=== PATIENT | male | born 1955 | race Caucasian/White ===

== ENCOUNTER 2018-03-24 20:30 | Emergency (ER) | payer MEDICAID ==
[2018-03-24] MEDS ORDERED: Aspirin 81 MG Tab.Chew PO STA (21:04)
[2018-03-24] MEDS ORDERED: Simvastatin 40 MG Tab PO STA (21:04)
[2018-03-24] MEDS ORDERED: Metoprolol Tartrate 5 MG/5 ML SDV IVPUSH ONE (21:05)
--- NOTE | 2018-03-24 21:11 | EDM.PDOC ---
ED HPI GENERAL MEDICAL PROBLEM - General Chief Complaint: Chest Pain Stated Complaint: CHEST PAINS Time Seen by Provider: 03/24/18 20:41 Source of Information: Reports: Patient, Other (Friend) History Limitations: Reports: No Limitations - History of Present Illness INITIAL COMMENTS - FREE TEXT/NARRATIVE: The patient states that he developed an achy discomfort felt retrosternally and just to the right of his sternum, well as between the scapulae, this morning. The discomfort has been waxing and waning. It is made worse if he walks, improved if he rests. The patient also reports that a right upper molar has been aching on and off today, as well. He has associated dyspnea, nausea, diaphoresis, and sense of impending doom. No prior similar symptoms. The patient states that this is not the same as prior indigestion. The patient took 2 baby aspirin around 15:00 this afternoon. The patient is visiting from [place], [place]. Treatments PROGRAM DIRECTOR AIR TALENT: Reports: Other (see below) Other Treatments PROGRAM DIRECTOR AIR TALENT: 162 mg aspirin today Chest Pain Score (Numeric/FACES): 6 - Related Data Allergies Allergy/AdvReac Type Severity Reaction Status Date / Time No Known Allergies Allergy Verified 03/24/18 20:55 Home Meds: Home Meds Albuterol Sulfate [Proventil Hfa] 2 puff INH Q4H PRN 03/24/18 [History] Aspirin [Halfprin] 81 mg PO DAILY 03/24/18 [History] Atenolol 50 mg PO DAILY 03/24/18 [History] Levothyroxine 150 mcg PO DAILY 03/24/18 [History] Meloxicam 7.5 mg PO DAILY PRN 03/24/18 [History] Triamterene/Hydrochlorothiazid [Triamterene-HCTZ 75-50 MG] 1 tab PO DAILY [History] metFORMIN [Glucophage] 500 mg PO BID 03/24/18 [History] Past Medical History Cardiovascular History: Reports: High Cholesterol (untreated), Hypertension Respiratory History: Reports: Asthma (suspected, not confirmed) Psychiatric History: Reports: Anxiety (untreated), Depression (untreated) Endocrine/Metabolic History: Reports: Diabetes, Type II, Hypothyroidism - Past Surgical History HEENT Surgical History: Reports: Tonsillectomy Male Surgical History: Reports: Nephrectomy (right, 2000) Neurological Surgical History: Reports: Lumbar Spine (L4-L5, 1986) Musculoskeletal Surgical History: Reports: Other (See Below) (Right 5th toe amputation) Social & Family History - Tobacco Use Smoking Status *Q: Current Every Day Smoker Years of Tobacco use: 24 Packs/Tins Daily: 0.5 - Alcohol Use Alcohol Use History: Yes Date/Time of Last Drink Comment: Rare consumption since 2012, due to excess - Recreational Drug Use Recreational Drug Use: No - Living Situation & Occupation Living situation: Reports: , Alone Occupation: Unemployed ED ROS GENERAL - Review of Systems Review Of Systems: ROS reveals no pertinent complaints other than HPI. ED EXAM, GENERAL - Physical Exam Exam: See Below Exam Limited By: No Limitations General Appearance: Alert, WD/WN, No Apparent Distress Eye Exam: Bilateral Eye: EOMI, Normal Inspection Ears: Normal External Exam, Hearing Grossly Normal Nose: Normal Inspection, No Blood Throat/Mouth: Normal Inspection, Normal Lips, Normal Voice, No Airway Compromise Head: Atraumatic, Normocephalic Neck: Normal Inspection, Full Range of Motion Respiratory/Chest: No Respiratory Distress, Lungs Clear, Normal Breath Sounds, No Accessory Muscle Use Cardiovascular: Normal Peripheral Pulses, Regular Rate, Rhythm, No Edema, No Gallop, No JVD, No Murmur, No Rub Peripheral Pulses: 4+: Radial (L), Radial (R) GI/Abdominal: Normal Bowel Sounds, Soft, Non-Tender, No Organomegaly, No Distention, No Abnormal Bruit, No Mass, Other (Obese) (Male) Exam: Deferred Rectal (Males) Exam: Deferred Back Exam: Normal Inspection, Full Range of Motion, NT Extremities: Normal Inspection, Normal Range of Motion, No Pedal Edema, Normal Capillary Refill Neurological: Alert, Oriented, Normal Cognition, No Motor/Sensory Deficits Psychiatric: Normal Affect Skin Exam: Warm, Dry, Intact, Normal Color, No Rash EKG INTERPRETATION EKG Date: 03/24/18 Time: 20:38 Rhythm: NSR Rate (Beats/Min): 60 [place]: Normal P-Wave: Present QRS: Normal ST-T: Elevated (Concave, anterolateral leads. No T-wave inversion.) QT: Normal Comparison: NA - No Prior EKG Course - Vital Signs Last Recorded V/S: Last Vital Signs Temp 35.6 C 03/24/18 20:38 Pulse 68 03/24/18 21:19 Resp 20 03/24/18 20:38 BP 122/73 03/24/18 21:19 Pulse Ox 100 03/24/18 20:38 - Orders/Labs/Meds Orders: Active Orders 24 hr Category Date Time Status EKG Documentation Completion [RC] STAT Care 03/24/18 21:03 Active Glucose [Blood Glucose Check, Bedside] [RC] ONETIME Care 03/24/18 20:54 Active Chest 2V [CR] Stat Exams 03/24/18 21:03 Taken Chest Abdomen Pelvis w Cont [CT] Stat Exams 03/24/18 21:05 Taken Sodium Chloride 0.9% [Normal Saline] 1,000 ml Med 03/24/18 22:00 Active IV ASDIRECTED Medication Orders Sodium Chloride (Normal Saline) 1,000 mls @ 100 mls/hr IV ASDIRECTED MATTEO Last Admin: 03/24/18 21:57 Dose: 100 mls/hr Labs: Laboratory Tests 03/24/18 03/24/18 03/24/18 Range/Units 20:40 20:40 20:40 WBC 12.11 H (4.23-9.07) K/mm3 RBC 4.77 (4.63-6.08) M/mm3 Hgb 15.0 (13.7-17.5) gm/L Hct 41.2 (40.1-51.0) % MCV 86.4 (79.0-92.2) fl MCH 31.4 (25.7-32.2) pg MCHC 36.4 H (32.2-35.5) g/dl RDW Std Deviation 37.8 (35.1-43.9) fL Plt Count 263 (163-337) K/mm3 MPV 9.1 L (9.4-12.3) fl Neutrophils % (Manual) 73 H (40-60) % Band Neutrophils % 0 (0-10) % Lymphocytes % (Manual) 13 L (20-40) % Atypical Lymphs % 0 % Monocytes % (Manual) 10 (2-10) % Eosinophils % (Manual) 1 (0.8-7.0) % Basophils % (Manual) 3 H (0.2-1.2) Platelet Estimate Adequate Plt Morphology Comment Normal RBC Morph Comment Normal PT 10.8 (9.5-12.1) SECONDS INR 0.99 APTT 36 H (24-31) SECONDS D-Dimer, Quantitative 0.83 H (0.19-0.50) mg/L Sodium 120 L (136-145) mEq/L Potassium 4.3 (3.5-5.1) mEq/L Chloride 86 L (98-107) mEq/L Carbon Dioxide 24 (21-32) mEq/L Anion Gap 14.3 (5-15) BUN 9 (7-18) mg/dL Creatinine 0.9 (0.7-1.3) mg/dL Est Cr Clr Drug Dosing 88.31 mL/min Estimated GFR (MDRD) > 60 (>60) mL/min BUN/Creatinine Ratio 10.0 L (14-18) Glucose 212 H (80-115) mg/dL POC Glucose (80-115) mg/dL Calcium 8.6 (8.5-10.1) mg/dL Magnesium 1.6 L (1.8-2.4) mg/dl Total Bilirubin 0.7 (0.2-1.0) mg/dL AST 74 H (15-37) U/L ALT 24 (16-63) U/L Alkaline Phosphatase 63 (46-116) U/L Troponin I 4.935 H* (0.00-0.056) ng/mL NT-Pro-B Natriuret Pep (0-125) pg/mL Total Protein 7.3 (6.4-8.2) g/dl Albumin 3.9 (3.4-5.0) g/dl Globulin 3.4 gm/dL Albumin/Globulin Ratio 1.2 (1-2) 03/24/18 03/24/18 Range/Units 20:40 20:45 WBC (4.23-9.07) K/mm3 RBC (4.63-6.08) M/mm3 Hgb (13.7-17.5) gm/L Hct (40.1-51.0) % MCV (79.0-92.2) fl MCH (25.7-32.2) pg MCHC (32.2-35.5) g/dl RDW Std Deviation (35.1-43.9) fL Plt Count (163-337) K/mm3 MPV (9.4-12.3) fl Neutrophils % (Manual) (40-60) % Band Neutrophils % (0-10) % Lymphocytes % (Manual) (20-40) % Atypical Lymphs % % Monocytes % (Manual) (2-10) % Eosinophils % (Manual) (0.8-7.0) % Basophils % (Manual) (0.2-1.2) Platelet Estimate Plt Morphology Comment RBC Morph Comment PT (9.5-12.1) SECONDS INR APTT (24-31) SECONDS D-Dimer, Quantitative (0.19-0.50) mg/L Sodium (136-145) mEq/L Potassium (3.5-5.1) mEq/L Chloride (98-107) mEq/L Carbon Dioxide (21-32) mEq/L Anion Gap (5-15) BUN (7-18) mg/dL Creatinine (0.7-1.3) mg/dL Est Cr Clr Drug Dosing mL/min Estimated GFR (MDRD) (>60) mL/min BUN/Creatinine Ratio (14-18) Glucose (80-115) mg/dL POC Glucose 216 H (80-115) mg/dL Calcium (8.5-10.1) mg/dL Magnesium (1.8-2.4) mg/dl Total Bilirubin (0.2-1.0) mg/dL AST (15-37) U/L ALT (16-63) U/L Alkaline Phosphatase (46-116) U/L Troponin I (0.00-0.056) ng/mL NT-Pro-B Natriuret Pep 734 H (0-125) pg/mL Total Protein (6.4-8.2) g/dl Albumin (3.4-5.0) g/dl Globulin gm/dL Albumin/Globulin Ratio (1-2) Meds: Medications Generic Name Dose Route Start Last Admin Trade Name Freq PRN Reason Stop Dose Admin Sodium Chloride 1,000 mls @ 100 mls/hr 03/24/18 22:00 03/24/18 21:57 Normal Saline IV 100 mls/hr ASDIRECTED MATTEO Administration Discontinued Medications Generic Name Dose Route Start Last Admin Trade Name Freq PRN Reason Stop Dose Admin Aspirin 324 mg 03/24/18 21:04 03/24/18 21:16 Aspirin PO 03/24/18 21:05 324 mg ONETIME STA Administration Magnesium Sulfate 2 gm/ Premix 50 mls @ 50 mls/hr 03/24/18 21:53 03/24/18 21: 58 IV 03/24/18 22:52 50 mls/hr ONETIME STA Administration Sodium Chloride 100 mls @ 4 mls/sec 03/24/18 22:02 03/24/18 22:05 Normal Saline IV 03/24/18 22:03 4 mls/sec ONETIME ONE Administration Iopamidol 40 ml 03/24/18 22:02 03/24/18 22:04 Isovue-370 (76%) IVPUSH 03/24/18 22:03 40 ml ONETIME ONE Administration Iopamidol 100 ml 03/24/18 22:02 03/24/18 22:04 Isovue-370 (76%) IVPUSH 03/24/18 22:03 100 ml ONETIME ONE Administration Metoprolol Tartrate 5 mg 03/24/18 21:05 03/24/18 21:19 Lopressor IVPUSH 03/24/18 21:06 5 mg ONETIME ONE Administration Simvastatin 80 mg 03/24/18 21:04 03/24/18 21:17 Zocor PO 03/24/18 21:05 80 mg ONETIME STA Administration - Re-Assessments/Exams Free Text/Narrative Re-Assessment/Exam: 03/24/18 21:10 The patient's history is very concerning for angina, and while concave, he has ST elevations in his anterolateral leads. I have ordered a chest pain evaluation , to include a CT aortogram, to evaluate for aortic dissection, since the patient's pain radiates through to his back between his scapulae. In the meantime, I have ordered 324 mg aspirin, 80 mg of Zocor, and 5 mg of Lopressor, which will likely be repeated. 03/24/18 21:17 2-view chest radiograph appears to be grossly normal. Cardiac silhouette is within normal limits. No pulmonary vascular congestion. No pleural effusions. No focal infiltrate. No pneumothorax. Formal read per the Radiologist pending. 03/24/18 21:52 The patient's troponin has returned as substantially elevated at 4.935. He will require transfer to [place]. He is currently at CT scan, however, as soon as he returns, I will see which hospital he prefers. In addition, the patient's magnesium level is modestly depressed at 1.6 - I will order a 1 g magnesium rider. His sodium is also depressed at 120, for reasons unclear, therefore I have ordered an NS at 100 mL per hour. I am reluctant to go higher, as the patient is reporting some shortness of breath, and his BNP is mildly elevated at 734. 03/24/18 22:04 Case discussed with [facility] at 21;57. Case then discussed with Dr. Burgess, Angle Furnaceman at [facility], at 22: 02. He stated that he does not have access to a fax machine, and that he does not have a smart phone, therefore I cannot get a copy of the ECG to him. He recommended that I fax a copy of the ECG to the [facility] ED at [phone]. 03/24/18 22:08 The patient received 5 mg of Lopressor. His most recent BP is 93/57, with a HR of 61. With these vitals, I cannot give additional Lopressor at this time. 03/24/18 22:[address] Almaguer, Emergency Physician at [facility], at 22:12. The ECG that was faxed is too dark for him to be able to read, therefore I sent an image of the ECG by cell phone. Because the patient is still having chest discomfort, we will call this a STEMI, and will therefore transport the patient by air. Chest radiograph and CT of the chest images have been pushed to [facility]. We will forward the Radiologist's interpretation of the CT/chest when available. 03/24/18 22:56 CT angiogram of the aorta is read by [facility] as "No acute findings. No evidence of dissection." Departure - Departure Time of Disposition: 22:21 Disposition: DC/Tfer to Acute Hospital 02 Reason for Transfer *Q: Primary PCI Indicated Condition: Fair Clinical Impression: STEMI (ST elevation myocardial infarction), Hyponatremia, Hyperglycemia due to type 2 diabetes mellitus, Hypomagnesemia Referrals: PCP,Not In Area [Primary Care Provider] - Forms: ED Department Discharge - My Orders Last 24 Hours: My Active Orders 03/24/18 20:54 Glucose [Blood Glucose Check, Bedside] [RC] ONETIME 03/24/18 21:03 EKG Documentation Completion [RC] STAT Chest 2V [CR] Stat 03/24/18 21:05 Chest Abdomen Pelvis w Cont [CT] Stat 03/24/18 22:00 Sodium Chloride 0.9% [Normal Saline] 1,000 ml IV ASDIRECTED - Assessment/Plan Last 24 Hours: My Active Orders 03/24/18 20:54 Glucose [Blood Glucose Check, Bedside] [RC] ONETIME 03/24/18 21:03 EKG Documentation Completion [RC] STAT Chest 2V [CR] Stat 03/24/18 21:05 Chest Abdomen Pelvis w Cont [CT] Stat 03/24/18 22:00 Sodium Chloride 0.9% [Normal Saline] 1,000 ml IV ASDIRECTED
[2018-03-24] MEDS ORDERED: Magnesium Sulfate/Water 2 GM in Premix Bag 1 BAG IV STA (21:53)
[2018-03-24] MEDS ORDERED: Sodium Chloride 0.9% 1,000 ML IV SCH (22:00)
[2018-03-24] MEDS ORDERED: Iopamidol 755 MG/ML 50 ML Bottle IVPUSH ONE (22:02)
[2018-03-24] MEDS ORDERED: Sodium Chloride 0.9% 100 ML IV ONE (22:02)
[2018-03-24] MEDS ORDERED: Iopamidol 755 Mg/ML 100 ML Bottle IVPUSH ONE (22:02)
--- NOTE | 2018-03-25 10:50 | CR ---
Chest: Two views of the chest were obtained. Comparison: Prior chest x-ray is not available. Heart size and mediastinum are normal. Lungs are clear without acute parenchymal change. Slight degenerative spurring is noted within the spine. Impression: 1. Nothing acute is seen on two-view chest x-ray. Diagnostic code #1
--- NOTE | 2018-03-25 10:50 | CT ---
CT chest Technique: Multiple axial sections were obtained from above the lung apices inferiorly through the lung bases. Intravenous contrast was utilized. Comparison: No prior chest CT. Findings: Aorta shows no aneurysm. No dissection is seen. Mild atherosclerotic calcifications seen within the aorta. Mediastinum and hilar regions show small lymph nodes which are felt to be normal. No pericardial thickening is seen. Lungs are clear. No acute parenchymal change is seen. No pleural effusions are seen. Bone window settings were reviewed which show scattered degenerative change within the spine. Impression: 1. No findings of thoracic aortic aneurysm or dissection. 2. Other incidental findings as noted above. Diagnostic code #2 I agree with preliminary report issued by [facility] ([facility] report finalized on 03/24/18, 11:35 PM Central Time) CT abdomen and pelvis Technique: Multiple axial sections were obtained from above the dome of the diaphragm inferiorly through the pubic symphysis. Intravenous contrast was utilized. Comparison: No prior abdominal imaging. Findings: Absent right kidney is noted compatible with prior right nephrectomy. Liver shows no focal parenchymal abnormality. Left kidney shows no hydronephrosis. Cyst noted within the cortex measuring approximately 1.2 cm. Pancreas is within normal limits. Adrenal glands show no nodule. Aorta shows diffuse atherosclerotic change which continues into the iliac vessels. No aneurysm is seen. Left renal artery shows no focal stenosis. Superior mesenteric and celiac axis shows no significant stenosis. Inferior mesenteric artery is also patent. Small fat-containing bilateral inguinal hernias are noted. No bowel dilatation is seen. No inflammatory change or free fluid is seen. Bone window settings shows diffuse degenerative spurring throughout the spine. Impression: 1. Prior right nephrectomy. 2. Incidental cyst within the left kidney. 3. Atherosclerotic change within the aorta and iliac vessels. No aneurysm or dissection is seen. 4. Other incidental findings as noted above. Diagnostic code #2 I agree with preliminary report issued by [facility] ([facility] report finalized on 03/24/18, 11:35 PM Central Time)
== END 2018-03-24 22:50 ==
LOC: JD.ED 20:30
DX: I21.3 ST elevation (STEMI) myocardial infarction of unspecified site (principal); E11.65 Type 2 diabetes mellitus with hyperglycemia; E87.1 Hypo-osmolality and hyponatremia; E83.42 Hypomagnesemia; F41.9 Anxiety disorder, unspecified; E03.9 Hypothyroidism, unspecified; E78.00 Pure hypercholesterolemia, unspecified; F17.210 Nicotine dependence, cigarettes, uncomplicated
CPT/HCPCS: 36415; 71046; 71260; 74177; 80053; 82962; 83735; 83880; 84484; 85007; 85027; 85379; 85610; 85730; 93005; 96365; 96375; 99285; A9270; J3490; J7030; J7040; Q9967; 93010; J3475